=== PATIENT | female | born 1985 | race Caucasian/White ===

== ENCOUNTER 2018-09-18 22:42 | Emergency (ER) | payer SELFPAY ==
[2018-09-18 23:11] LABS: PLATELET COUNT 225 10^3/uL (150-400)
[2018-09-18] MEDS ORDERED: NS 1,000 ML IV ONE (23:11)
[2018-09-18] MEDS ORDERED: PROMETHAZINE HCL 25 MG/ML INJ IVP ONE (23:11)
[2018-09-18] MEDS ORDERED: FAMOTIDINE 20 MG/2 ML SDV IVP ONE (23:11)
[2018-09-18] MEDS ORDERED: fentaNYL 100 MCG/2 ML INJ IVP ONE (23:11)
--- NOTE | 2018-09-18 23:32 | EDPHY ---
General - History Smoking Status: Current every day smoker Time Seen by Provider: 09/18/18 22:51 Narrative: CLINICAL IMPRESSION: Abdominal pain, nausea and vomiting ASSESSMENT/PLAN: 32-year-old female presents to the emergency department complaining of 1 week of upper abdominal pain associated with nausea and vomiting. Patient was seen recently for the same at [facility], reportedly had normal labs and urine studies and was told that she had an ulcer. Patient is visiting friends in this area. Repeat labs show no leukocytosis, transaminitis, pancreatitis, electrolyte imbalance or metabolic disturbance. EKG shows no e/o pericarditis, ACS, or arrhythmia. Right upper quadrant ultrasound read by Radiology with no evidence of acute cholecystitis, choledocholithiasis, hydronephrosis. She is currently on her menses and has hematuria but no evidence of pyuria or bacteriuria. Patient received a total of 50 mcg of fentanyl, Phenergan, IV fluids and famotidine, and on reassessment was sleeping soundly to the point that she was snoring. Repeat abdominal exam is soft with no focal peritoneal findings. I do not feel this patient requires an emergent CT scan. She was advised to start a proton pump inhibitor, bland liquid only diet, follow up with Gastroenterology in her home city of [place], warning signs return to ED sooner outlined in discharge. DIFFERENTIAL DX: Abdominal pain includes but not limited to urinary tract infection, pyelonephritis, infection, ectopic , salpingitis, TOA, ovarian torsion, ovarian cyst, endometriosis, uterine fibroids, acute appendicitis, acute diverticulitis, small-bowel obstruction, constipation ED PROCEDURES: See lab and/or imaging results below ED COURSE: Patient seen and assessed by myself. This prefers to sit bending over leaning forward. Tearful, appears uncomfortable. Plan for IV, labs, urine, right upper quadrant ultrasound. PDMP record shows no recent narcotic prescription fills. 12:45 a.m.: Patient reassessed, sleeping and snoring, appears in absolutely no pain. No reproducible abdominal discomfort on repeat exam. Ultrasound signed by Radiology at 12:15 a.m. Reading prominent echogenic pancreas, no cholelithiasis, no hydronephrosis, normal appearing gallbladder. Patient does not have acute pancreatitis, lipase is normal. No evidence of significant transaminitis or leukocytosis. I do not feel this patient requires an emergent CT scan. EKG shows no evidence of acute pericarditis, no acute ST or T-wave changes, reviewed with Dr. Cook. CHIEF COMPLAINT: Abdominal pain, nausea and vomiting HPI: 32-year-old female from [place] presents to the emergency department with complaints of abdominal pain x1 week associated with nausea and vomiting. Patient reports pain began 1 week ago, she was seen at [facility] 2 days later, had laboratory evaluation and urine studies and was told that she had "a stomach ulcer". She never had any kind of scans and was discharged with and acids. She states since that time her pain has persisted. His been intermittent. She has had nausea and vomiting and food makes the pain worse. No documented fever or chills. Occasionally the pain radiates to the back. No reports of flank pain, dysuria, visible hematuria. She has had a prior tubal ligation and denies chance of . No abnormal discharge. She has had a prior appendectomy. She reports a history of PCOS but has never had a ovarian cyst large enough to require surgical intervention. She has only been trying antacids for pain control. She drinks alcohol 1-2 drinks a night. She states she has "experimented with drugs". She denies regular marijuana. No history of hepatitis or pancreatitis. She does not use heavy amounts of NSAIDs or Tylenol PAST MEDICAL HISTORY: PCOS See triage summary and nurse notes for addition applicable history Pertinent Past Surgical History: Appendectomy, urgency , tubal ligation Family History: Noncontributory Social History: Drinks alcohol nightly, smoker REVIEW OF SYSTEMS: A full 10 point review of systems was negative except for those mentioned in HPI. PHYSICAL EXAM: General Appearance: Alert, oriented, crying, laying in position on significant other's lap, overweight HEENT: Oropharynx clear is no erythema or exudates, no tonsillar hypertrophy or asymmetry. Dentition without abnormality. Respiratory: There are no retractions, lungs are clear to auscultation. Cardiac: Regular rate and rhythm, no murmurs or gallops. Gastrointestinal: Abdomen is soft, nontender, bowel sounds normal, no masses/ hernia, no rigidity, guarding or focal peritoneal findings. Skin: Warm, dry, no rashes, no nodules on palpation. MEDICAL DECISION MAKING: Patient was seen independently. Secondary supervising physician at time of evaluation was: Dr. Cook. Diagnosis: Abdominal pain nausea and vomiting. New, requires workup Summary: See Assessment and Plan for summary of ED visit Clinical lab tests: ordered / reviewed. Independent visualization of images, tracing, or specimens: Yes. Patient Progress: Stable for discharge. (Lamberto Wise) Medical Decision Making: I did not see or evaluate this patient while she was in the ER. However, agree with treatment plan. (Steve Cook) - Objective Vital Signs: Initial Vital Signs Temperature (C) 37.1 C 09/18/18 22:45 Heart Rate 106 H 09/18/18 22:45 Respiratory Rate 18 09/18/18 22:45 Blood Pressure 144/97 H 09/18/18 22:45 O2 Sat (%) 97 09/18/18 22:45 O2 Delivery Mode Room Air Allergies/Adverse Reactions: control Allergy (Uncoded 09/18/18 22:45) Home Medications: Medication Instructions Recorded Motrin (*) 09/18/18 Prilosec 09/18/18 Hydrocodone/APAP 5/325 [Haynes 1 - 2 tab PO Q4H PRN #10 tab 09/19/18 5/325 (*)] Laboratory Results: Laboratory Results 09/18/18 22:56 09/18/18 22:56 Medications Given: Discontinued Medications Famotidine (Pepcid) 20 mg IVP EDNOW ONE Stop: 09/18/18 23:12 Last Admin: 09/18/18 23:21 Dose: 20 mg Fentanyl (Sublimaze) 50 mcg IVP EDNOW ONE Stop: 09/18/18 23:12 Last Admin: 09/18/18 23:21 Dose: 50 mcg Sodium Chloride (Ns) 1,000 mls @ 0 mls/hr IV EDNOW ONE; Wide Open PRN Reason: Protocol Stop: 09/18/18 23:12 Last Admin: 09/18/18 23:22 Dose: 1,000 mls Promethazine HCl (Phenergan) 12.5 mg IVP ONCE ONE Stop: 09/18/18 23:12 Last Admin: 09/18/18 23:22 Dose: 12.5 mg Point of Care Test Results: Chemistry 09/18/18 23:02 POC Sodium 141 mEq/L mEq/L (135-145) POC Potassium 3.5 mEq/L mEq/L (3.3-5.0) POC Chloride 104 mEq/L mEq/L (97-110) POC Total CO2 21 mEq/L L mEq/L (22-31) POC BUN 19 mg/dL mg/dL (7-23) POC Creatinine 0.8 mg/dL mg/dL (0.6-1.0) POC Glucose 100 mg/dL mg/dL (70-100) ISTAT H&H 09/18/18 23:02 POC Hgb 15.6 gm/dL gm/dL (12.6-16.3) POC Hct 46 % % (38-47) Departure - Departure Disposition: Home, Routine, Self-Care Clinical Impression: Abdominal pain Qualifiers: Abdominal location: epigastric Qualified Code(s): R10.13 - Epigastric pain Nausea & vomiting Qualifiers: Vomiting type: unspecified Vomiting Intractability: non-intractable Qualified Code(s): R11.2 - Nausea with vomiting, unspecified Condition: Fair Instructions: Abdominal Pain (ED) Additional Instructions: DISCHARGE INSTRUCTIONS FROM YOUR DOCTOR Thank you for visiting our emergency department today. You were treated by a physician rehab assistant today and your case was reviewed with our ED Attending physician. Please keep in mind that discharge from the emergency department does not mean that there is nothing wrong - it simply means that we have not identified an emergency condition that requires further evaluation or treatment in the hospital. You should always plan to follow up with primary care for re- evaluation of your condition in the next 2-3 days. If you have been referred to a specialist, please call as soon as possible (today or tomorrow) to schedule your follow up appointment at the appropriate time. DIAGNOSTIC EVALUATION IN THE EMERGENCY DEPARTMENT INCLUDED ULTRASOUND OF THE RIGHT UPPER QUADRANT, LAB TESTS INCLUDING PANCREAS ENZYMES AND LIVER ENZYMES WELL URINE STUDIES. WE SEE NO EVIDENCE OF ACUTE PANCREATITIS, HEPATITIS, ELEVATED INFECTION FIGHTING COUNT, INFECTION IN THE GALLBLADDER, KIDNEY STONE, OR URINARY TRACT INFECTION. WE STRONGLY RECOMMEND YOU FOLLOW UP WITH A PRIMARY CARE PROVIDER AND CELLOPHANE TESTER IN [place]. A SMALL AMOUNT OF PAIN MEDICATION WAS PROVIDED. USE NAUSEA MEDICATION IF NEEDED. RETURN TO THE EMERGENCY DEPARTMENT FOR WORSENING OR SEVERE PAIN, HIGH FEVERS, VOMITING BLOOD OR ANY OTHER CONCERN. People present with illnesses and injuries in different ways, and it is always possible that we have missed something. You may always return for re-evaluation if symptoms worsen or if they are not improving or if you develop new/different symptoms. Again, thank you for choosing our emergency department. We hope that you feel better. Referrals: Patient,NotPresent [Unknown] - As per Instructions [facility]Clinic] - As per Instructions Prescriptions: Hydrocodone/APAP 5/325 [Haynes 5/325 (*)] 1 - 2 tab PO Q4H PRN #10 tab PRN Reason: Pain, Moderate
[2018-09-19 01:08] VITALS: BP 122/84
--- NOTE | 2018-09-24 13:41 | CPEKG ---
Test Reason : OPEN Blood Pressure : / mmHG Vent. Rate : 087 BPM Atrial Rate : 087 BPM P-R Int : 166 ms QRS Dur : 075 ms QT Int : 367 ms P-R-T Axes : 080 048 025 degrees QTc Int : 442 ms Sinus rhythm Confirmed by Rosemary Turpin ([id number]) on 09/24/2018 1:40:40 PM Referred By: Steve Cook Confirmed By:Rosemary Turpin
== END 2018-09-19 01:30 | disposition home or self-care (01) ==
DX: R10.13 Epigastric pain (principal); R11.2 Nausea with vomiting, unspecified; E86.9 Volume depletion, unspecified
CPT/HCPCS: 82435-PO; 82565-PO; 82947-PO; 84132-PO; 84295-PO; 84520-PO; 85014-ER; 96374; J2550; J3010